=== PATIENT | female | born 1935 ===

== ENCOUNTER 2017-01-09 19:39 | Inpatient (IN) | payer MEDICARE, OTHER ==
[2017-01-09 19:44] VITALS: O2SAT 99; BMI 24.5
--- NOTE | 2017-01-09 19:44 | ED PDOC ---
Psych Transfer Clearance - Clearance Statement Clearance Statement: Reviewed vital signs, lab results and transfer papers. Patient clinically stable for psychiatric admission.
[2017-01-09] MEDS ORDERED: Alum-Mag Hydrox-Simethicone Susp (30 mL) PO PRN (20:32)
[2017-01-09] MEDS ORDERED: Magnesium Hydroxide Susp 30 ml UD PO PRN (20:32)
[2017-01-09] MEDS ORDERED: Bismuth Subsalicylate 262 mg/15 ml Sus (240 ml) PO PRN (20:32)
[2017-01-09] MEDS: Insulin Lispro (humaLOG) 100 Units/ml Inj SC SCH (21:41)
[2017-01-10 06:44] LABS: BLOOD UREA NITROGEN 26 mg/dl (7-17); CALCIUM 9.3 mg/dL (8.4-10.2); GFR AFRICAN-AMERICAN > 60; GFR NON-AFRICAN AMERICAN 53; HDL CHOLESTEROL 33 MG/DL (30-70)
[2017-01-10 06:56] LABS: LDL CHOLESTEROL 157 mg/dL (0-129)
[2017-01-10 07:02] LABS: T4 6.77 ug/dl (5.5-11.0)
[2017-01-10] MEDS: Insulin Lispro (humaLOG) 100 Units/ml Inj SC SCH ×4 (08:35→21:24)
[2017-01-10] MEDS: Divalproex 125 mg Sprinkle Capsule PO SCH ×2 (08:38→17:39)
--- NOTE | 2017-01-10 10:52 | CP.PCM.CON ---
History of Present Illness - History of Present Illness History of Present Illness: Patient is a 81 YO Female with PMH of Dementia, Parkinson's disease, HTN and DM per chart presents to [facility] from transferred from [facility] for behavior changes and worsening dementia. Per chart, patient was found to be nude at home, and smearing feces in her face and body. Medicine was consulted for medical management. Patient is seen and interviewed bedside. She is awake, alert and oriented to name only. 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 Occasionally looks out the window and says "look at the flying car and buses outside the window." When asked about any weakness in her extremities patient states that "I have never walked or breathed in my life." Patient notes that she had oatmeal and juice breakfast this AM. Denies abdominal pain, chest pain, nausea, vomiting, dysuria, fever, chills. Per chart PMH: Bipolar disorder, Parkinson's disease, dementia, DM, HTN FH: No known family history SH: From [place], used to a [employer], lives with her 2 sons, , no drugs/etoh/smoking, + some college education Allergies: NKDA Review of Systems - Review of Systems Systems not reviewed;Unavailable: Dementia Review of Systems: Pleasant, alert, awake and oriented to person only. - EENT Eyes: absent: Pain Nose/Mouth/Throat: absent: Facial Pain, Neck Pain - Cardiovascular Cardiovascular: absent: Chest Pain, Dyspnea - Respiratory Respiratory: absent: Cough - Gastrointestinal Gastrointestinal: absent: Abdominal Pain, Diarrhea, Nausea, Vomiting - Genitourinary Genitourinary: absent: Dysuria, Bladder Distension - Reproductive: Female Reproductive:Female: Post Menopausal - Neurological Neurological: Behavioral Changes - Psychiatric Psychiatric: Behavioral Changes, Visual Hallucinations Past Patient History - Tetanus Immunizations Tetanus Immunization: Unknown - Past Medical History & Family History Past Medical History?: Yes - Past Social History Smoking Status: Never Smoked Alcohol: None Drugs: Denies Home Situation {Lives}: With Family Domestic Violence: Negative - CARDIAC Hx Hypercholesterolemia: Yes Hx Hypertension: Yes - PULMONARY Hx Respiratory Disorders: No - NEUROLOGICAL Hx Neurological Disorder: Yes Hx Dementia: Yes - HEENT Hx HEENT Problems: Yes Hx Glaucoma: Yes - RENAL Hx Chronic Kidney Disease: No Hx Dialysis: No - ENDOCRINE/METABOLIC Hx Diabetes Mellitus Type 2: Yes - HEMATOLOGICAL/ONCOLOGICAL Hx Blood Disorders: No - INTEGUMENTARY Other/Comment: both heals ulcers,excoriated sacrum - MUSCULOSKELETAL/RHEUMATOLOGICAL Hx Falls: Yes (As per patient " I fall 4 times at home") - GASTROINTESTINAL Hx Gastrointestinal Disorders: No - GENITOURINARY/GYNECOLOGICAL Hx Genitourinary Disorders: No - PSYCHIATRIC Hx Substance Use: No - SURGICAL HISTORY Hx Surgeries: No Other/Comment: history of a gastrostomy tube - ANESTHESIA Hx Anesthesia: No Meds Allergies/Adverse Reactions: Allergies Allergy/AdvReac Type Severity Reaction Status Date / Time No Known Allergies Allergy Verified 08/25/16 10:38 - Medications Medications: Current Medications Acetaminophen (Tylenol 325mg Tab) 650 mg PO Q4 PRN PRN Reason: Pain, moderate (4-7) Al Hydrox/Mg Hydrox/Simethicone (Maalox Plus 30 Ml) 30 ml PO Q4 PRN PRN Reason: Dyspepsia Bismuth Subsalicylate (Pepto-Bismol) 524 mg PO Q4 PRN PRN Reason: Diarrhea Diphenhydramine HCl (Benadryl) 50 mg PO HS PRN PRN Reason: Sleep Divalproex Sodium (Depakote Sprinkles) 250 mg PO BID [facility] Last Admin: 01/10/17 08:38 Dose: 250 mg Hydrocortisone (Cortizone 1% Cream) 1 applic TOP BID [facility] Last Admin: 01/10/17 08:40 Dose: 1 % Insulin Human Lispro (Humalog) 0 units SC ACHS [facility] PRN Reason: Protocol Last Admin: 01/10/17 08:35 Dose: 5 u Lisinopril (Zestril) 10 mg PO DAILY [facility] Last Admin: 01/10/17 08:49 Dose: Not Given Lorazepam (Ativan) 0.5 mg PO HS PRN PRN Reason: Insomnia Stop: 01/23/17 20:33 Lorazepam (Ativan) 0.5 mg PO Q6 PRN PRN Reason: Anixety/Agitation Stop: 01/23/17 20:33 Magnesium Hydroxide (Milk Of Magnesia) 30 ml PO HS PRN PRN Reason: Constipation Metformin HCl (Glucophage) 500 mg PO BID [facility] Last Admin: 01/10/17 08:47 Dose: Not Given Nystatin (Nystop Topical Powder) 1 applic TOP TID [facility] Last Admin: 01/10/17 08:39 Dose: 1 u Quetiapine Fumarate (Seroquel) 50 mg PO BID [facility] Last Admin: 01/10/17 08:49 Dose: Not Given Quetiapine Fumarate (Seroquel) 100 mg PO BID [facility] Last Admin: 01/10/17 08:49 Dose: Not Given Physical Exam - Constitutional Appears: Well, No Acute Distress - Head Exam Head Exam: ATRAUMATIC, NORMAL INSPECTION, NORMOCEPHALIC - ENT Exam ENT Exam: Mucous Membranes Moist, Normal Exam - Neck Exam Neck exam: Positive for: Full Rom - Respiratory Exam Respiratory Exam: Clear to Auscultation Bilateral, NORMAL BREATHING PATTERN - Cardiovascular Exam Cardiovascular Exam: REGULAR RHYTHM, +S1, +S2. absent: Gallop, Rubs - GI/Abdominal Exam GI & Abdominal Exam: Normal Bowel Sounds, Soft. absent: Distended, Guarding - Extremities Exam Extremities exam: Positive for: normal inspection, pedal pulses present. Negative for: pedal edema, tenderness - Neurological Exam Neurological exam: Alert Additional comments: Oriented to person only. - Psychiatric Exam Psychiatric exam: Normal Mood - Skin Skin Exam: Dry, Intact, Normal Color, Warm Results - Vital Signs Recent Vital Signs: Last Vital Signs Temp 97.2 F L 01/10/17 05:47 Pulse 100 H 01/10/17 08:49 Resp 18 01/10/17 05:47 BP 116/68 01/10/17 08:49 Pulse Ox 99 01/10/17 05:47 - Labs Result Diagrams: 01/10/17 06:00 Labs: Laboratory Results - last 24 hr 01/09/17 01/10/17 01/10/17 20:23 05:53 06:00 Sodium 139 Potassium 4.9 Chloride 104 Carbon Dioxide 29 Anion Gap 10 BUN 26 H Creatinine 1.0 Est GFR ( Amer) > 60 Est GFR (Non-Af Amer) 53 POC Glucose (mg/dL) 285 H 356 H Random Glucose 272 H Calcium 9.3 Triglycerides 306 H D Cholesterol 246 H LDL Cholesterol Direct 157 H HDL Cholesterol 33 Thyroxine (T4) 6.77 TSH 3rd Generation 1.83 Assessment & Plan - Assessment and Plan (Free Text) Assessment: Patient is a 81 YO Female with PMH of bipolar, dementia, Parkinson's disease, HTN and DM presented for change in behavior and worsening dementia. Medicine was consulted for medical management. UA in [place]'s negative, afebrile and vs stable. 1. Worsening dementia with behavior changes, bipolar disorder -management per psych 2. DM type II - accu-checks -continue PO metformin 500mg BID -Insulin Lispro SubQ ACHS as per protocol 3. HTN, stable - continue PO lisinopril 10mg daily
--- NOTE | 2017-01-10 17:43 | PCM.PSYCH ---
Initial Psychiatric Evaluation - Initial Psychiatric Evaluation Chief Complaint (in patient's own words): i was feeling down I dont know Patient's Reaction to Hospitalization: 81 YO Female with PMH of Dementia, Parkinson's disease, HTN and DM per chart presents to [facility] from transferred from [facility] for behavior changes and worsening dementia. Per chart, patient was found to be nude at home , and smearing feces in her face and body. Medicine was consulted for medical management. 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 Occasionally looks out the window and says "look at the flying car and buses outside the window." When asked about any weakness in her extremities patient states that "I have never walked or breathed in my life." History of Present Illness and Precipitating Events: Patient is a 81 YO Female with PMH of Dementia, Parkinson's disease, HTN and DM per chart presents to [facility] from transferred from [facility] for behavior changes and worsening dementia. Per chart, patient was found to be nude at home, and smearing feces in her face and body. Occasionally looks out the window and says "look at the flying car and buses outside the window." Current Medications: Active Medications Generic Name Dose Route Start Last Admin Trade Name Freq PRN Reason Stop Dose Admin Acetaminophen 650 mg 01/09/17 20:32 Tylenol 325mg Tab PO Q4 PRN Pain, moderate (4-7) Al Hydrox/Mg Hydrox/Simethicone 30 ml 01/09/17 20:32 Maalox Plus 30 Ml PO Q4 PRN Dyspepsia Bismuth Subsalicylate 524 mg 01/09/17 20:32 Pepto-Bismol PO Q4 PRN Diarrhea Diphenhydramine HCl 50 mg 01/09/17 21:01 Benadryl PO HS PRN Sleep Divalproex Sodium 250 mg 01/10/17 09:00 01/10/17 17:39 Depakote Sprinkles PO 250 mg BID [place] Administration Hydrocortisone 1 applic 01/09/17 23:00 01/10/17 17:38 Cortizone 1% Cream TOP 1 % BID [place] Administration Insulin Human Lispro 0 units 01/09/17 22:00 01/10/17 13:01 Humalog SC 1 u ACHS [place] Administration Protocol Lisinopril 10 mg 01/10/17 09:00 01/10/17 08:49 Zestril PO Not Given DAILY [place] Lorazepam 0.5 mg 01/09/17 20:32 Ativan PO 01/23/17 20:33 HS PRN Insomnia Lorazepam 0.5 mg 01/09/17 20:32 Ativan PO 01/23/17 20:33 Q6 PRN Anixety/Agitation Magnesium Hydroxide 30 ml 01/09/17 20:32 Milk Of Magnesia PO HS PRN Constipation Metformin HCl 500 mg 01/10/17 09:00 01/10/17 08:47 Glucophage PO Not Given BID [place] Nystatin 1 applic 01/10/17 09:00 01/10/17 13:02 Nystop Topical Powder TOP 1 applic TID [place] Administration Quetiapine Fumarate 50 mg 01/10/17 09:00 01/10/17 08:49 Seroquel PO Not Given BID [facility] Quetiapine Fumarate 100 mg 01/10/17 09:00 01/10/17 08:49 Seroquel PO Not Given BID [place] Past Psychiatric History - Past Psychiatric History Prior Professional Help: i dont know I have problems with my memory At what hospital: [facility] Explanation of prior treatment: does not recall History of ETOH/Drug Use: denies History of Family Illness: i dont remember Pertinent Medical Hx (Current Medical&Sleep Prob, Allergies): Allergies Allergy/AdvReac Type Severity Reaction Status Date / Time No Known Allergies Allergy Verified 08/25/16 10:38 Divalproex [Depakote Sprinkles] 250 mg PO BID #120 capsule 09/08/16 Lisinopril [Zestril] 10 mg PO DAILY #30 tablet 09/08/16 QUEtiapine [SEROquel] 50 mg PO BID #30 tab 09/08/16 QUEtiapine [Seroquel] 100 mg PO BID #30 tab 09/08/16 Tobramycin/Dexamethasone [Tobramycin-Dexameth Ophth Susp] 1 drop BOTHEYES DAILY #1 drops.susp 09/08/16 metFORMIN [glucOPHAGE] 500 mg PO BID #60 tab 09/08/16 Review of Systems - Psychiatric Psychiatric: As Per HPI, Abnormal Sleep Pattern, Anhedonia, Auditory Hallucinations, Memory Loss, Visual Hallucinations Mental Status Examination - Personal Presentation Personal Presentation: Looks stated age - Affect Affect: Constricted - Motor Activity Motor Activity: Psychomotor Retardation - Reliability in Providing Information Reliability in Providing Information: Poor, due to alteration in thoughts, Poor , due to cognitve impairment - Speech Speech: Disorganized Additional comments: pt is noted to yell at times when in room denies knowing as to why - Mood Mood: Depressed, Anxious - Formal Thought Process Formal Thought Process: Hallucinations - Hallucinations/Delusions Hallucinations: Visual - Cognitive Functions Orientation: Person Sensorium: Alert Attention/Concentration: Easily distracted Judgement: Imparied, as evidence by: Lack of insight into illness - Risk Risk: Diminished functioning - Strength & Assets Inventory Strength & Assets Inventory: Cooperative (changes in level of function, faily cognitive function, inpaired self care ) DSM 5 DX - DSM 5 DSM 5 Diagnosis: Dementia with Behavioral changes Diabetes Hyperlipidemia hypertryglyceridemia ?abnormal urinalysis - Recommended/Plan of Treatment Treatment Recommendations and Plan of Treatment: admission per attending vital signs and clinical observation per protocol and per clinical status hospitalist consult resume at home meds physical therapy assessment and treatment staff report pt is free of observable skin wounds discharge planning in progress Projected ELOS: 5-7 days Prognosis: guarded Discharge Plan and Discharge Criteria: safety - Smoking Cessation Smoking Cessation Initiated: No Reason for not providing: deferred
[2017-01-11] MEDS: Divalproex 125 mg Sprinkle Capsule PO SCH ×2 (08:39→17:23)
[2017-01-11] MEDS: Insulin Lispro (humaLOG) 100 Units/ml Inj SC SCH ×4 (08:40→21:05)
--- NOTE | 2017-01-11 15:21 | PCM.PYCHPN ---
Psychiatric Progress Note - Psychiatric Progress Note Patient seen today, length of contact: chart reviewed case discussed with team Patient Chief Complaint: i was feeling down I dont know-feeling little better Problems Identified/Issues Discussed: alteration in mood, cognition, self care-lability in mood, yelling out at times , labile at times Medical Problems: does not recall Diagnostic Results: per psychiatry per medicine per nursing ] per socially responsible investment adviser per recreational therapy DSM 5 Symptoms Update: mood changes thought changes behavior changes Medication Change: No Medical Record Reviewed: Yes Mental Status Examination - Cognitive Function Orientation: Person Attention: Poor Concentration: Poor Association: Loose Fund of Knowledge: Poor Decription of patient's judgement and insights: impaired - Mood Mood: Depressed, Anxious - Affect Affect: Constricted - Formal Thought Process Formal Thought Process: Hallucinations - Homicidal Ideation Homicidal Ideation: No Goal/Treatment Plan - Goal/Treatment Plan Progress Toward Problem(s) and Goals/Treatment Plan: int milileu vital signs and clinical observation per protocol and per clinical status pt being followed by hospitalist consult obtain lfts/vpa level [id number] am staff report pt is free of observable skin wounds discharge planning in progress Estimated Date of D/C: 01/18/17 - Smoking Cessation Smoking Cessation Initiated: No Reason for not providing: deferred
[2017-01-12] MEDS: Insulin Lispro (humaLOG) 100 Units/ml Inj SC SCH ×4 (08:57→21:03)
[2017-01-12] MEDS: Divalproex 125 mg Sprinkle Capsule PO SCH ×2 (08:59→16:55)
--- NOTE | 2017-01-12 13:16 | PCM.PYCHPN ---
Psychiatric Progress Note - Psychiatric Progress Note Patient seen today, length of contact: discussed with team Patient Chief Complaint: no c/o Problems Identified/Issues Discussed: no c/o medication side effects. no major behavioral episodes or aggression. Medication Change: No Medical Record Reviewed: Yes Mental Status Examination - Cognitive Function Orientation: Person Memory: Intact Attention: Poor Concentration: Poor Association: Loose Fund of Knowledge: Poor Decription of patient's judgement and insights: poor - Mood Mood: Depressed, Anxious - Affect Affect: Constricted - Formal Thought Process Formal Thought Process: Hallucinations - Suicidal Ideation Suicidal Ideation: No - Homicidal Ideation Homicidal Ideation: No Goal/Treatment Plan - Goal/Treatment Plan Need for Continued Stay: Remain at risks for inpatient hospitalization, Severe functional impairment Progress Toward Problem(s) and Goals/Treatment Plan: dementia with behavioral disturbance continue current treatment check depakoke level this weekend Estimated Date of D/C: 01/18/17 - Smoking Cessation Smoking Cessation Initiated: No
[2017-01-13 08:36] LABS: ALB/GLOB RATIO 1.2 (1.0-2.1); ALBUMIN 3.3 g/dL (3.5-5.0); BILIRUBIN,DIRECT 0.3 mg/ml (0.0-0.4)
[2017-01-13] MEDS: Divalproex 125 mg Sprinkle Capsule PO SCH ×2 (08:59→16:07)
[2017-01-13] MEDS: Insulin Lispro (humaLOG) 100 Units/ml Inj SC SCH ×4 (09:01→21:00)
--- NOTE | 2017-01-13 10:46 | PCM.PYCHPN ---
Psychiatric Progress Note - Psychiatric Progress Note Patient seen today, length of contact: discussed with team Patient Chief Complaint: no c/o Problems Identified/Issues Discussed: no c/o medication side effects. no major behavioral episodes or aggression. Medication Change: No Medical Record Reviewed: Yes Mental Status Examination - Cognitive Function Orientation: Person Memory: Intact Attention: Poor Concentration: Poor Association: Loose Fund of Knowledge: Poor Decription of patient's judgement and insights: poor - Mood Mood: Depressed, Anxious - Affect Affect: Constricted - Formal Thought Process Formal Thought Process: Other (internally preoccupied) - Suicidal Ideation Suicidal Ideation: No - Homicidal Ideation Homicidal Ideation: No Goal/Treatment Plan - Goal/Treatment Plan Need for Continued Stay: Remain at risks for inpatient hospitalization, Severe functional impairment Progress Toward Problem(s) and Goals/Treatment Plan: dementia with behavioral disturbance continue current treatment check depakoke level this Estimated Date of D/C: 01/18/17
[2017-01-14] MEDS: Divalproex 125 mg Sprinkle Capsule PO SCH ×2 (10:36→16:38)
[2017-01-14] MEDS: Insulin Lispro (humaLOG) 100 Units/ml Inj SC SCH ×4 (10:42→21:02)
--- NOTE | 2017-01-14 12:24 | PCM.PYCHPN ---
Psychiatric Progress Note - Psychiatric Progress Note Patient seen today, length of contact: discussed with team Patient Chief Complaint: no c/o Problems Identified/Issues Discussed: no c/o medication side effects. pt calm and in room currently. no major behavioral episodes or aggression over this weekend. Diagnostic Results: valproic acid 61.8 Medication Change: No Medical Record Reviewed: Yes Mental Status Examination - Cognitive Function Orientation: Person Memory: Intact Attention: Poor Concentration: Poor Association: Loose Fund of Knowledge: Poor Decription of patient's judgement and insights: poor - Mood Mood: Depressed, Anxious - Affect Affect: Constricted - Formal Thought Process Formal Thought Process: Other (internally preoccupied) - Suicidal Ideation Suicidal Ideation: No - Homicidal Ideation Homicidal Ideation: No Goal/Treatment Plan - Goal/Treatment Plan Need for Continued Stay: Remain at risks for inpatient hospitalization, Severe functional impairment Progress Toward Problem(s) and Goals/Treatment Plan: dementia with behavioral disturbance continue current treatment depakote level is wnl and will not change dose Estimated Date of D/C: 01/18/17
--- NOTE | 2017-01-15 08:58 | PCM.PYCHPN ---
Psychiatric Progress Note - Psychiatric Progress Note Patient seen today, length of contact: Patient evaluated, case discussed with team, chart reviewed, 35 min Patient Chief Complaint: "I'm okay" Problems Identified/Issues Discussed: Patient continues to be disoriented to place/time. She denies any acute complaints. She denies acute paranoia towards her family. She continues to intermittently disrobe herself for no apparent reason, but is otherwise redirectable. No aggression/agitation. Diagnostic Results: VPA 61.8 Medication Change: No Medical Record Reviewed: Yes Mental Status Examination - Cognitive Function Orientation: Person Memory: Intact Attention: Poor Concentration: Poor Association: Loose Fund of Knowledge: Poor Decription of patient's judgement and insights: Poor I/J - Mood Mood: Anxious - Affect Affect: Constricted - Speech Speech: Soft - Formal Thought Process Formal Thought Process: Loosening of associations Psychotic Thoughts and Behaviors: Denies AH/VH - Suicidal Ideation Suicidal Ideation: No - Homicidal Ideation Homicidal Ideation: No Goal/Treatment Plan - Goal/Treatment Plan Need for Continued Stay: Remain at risks for inpatient hospitalization, Severe functional impairment Progress Toward Problem(s) and Goals/Treatment Plan: Dementia w/ behavioral disturbances -Continue current medications -Individual and group therapy -Disposition planning Estimated Date of D/C: 01/18/17
[2017-01-15] MEDS: Divalproex 125 mg Sprinkle Capsule PO SCH ×2 (09:38→17:46)
[2017-01-15] MEDS: Insulin Lispro (humaLOG) 100 Units/ml Inj SC SCH ×4 (10:22→21:20)
--- NOTE | 2017-01-16 08:42 | PCM.PYCHPN ---
Psychiatric Progress Note - Psychiatric Progress Note Patient seen today, length of contact: Patient evaluated, case discussed with team, chart reviewed, 35 min Patient Chief Complaint: "I'm okay" Problems Identified/Issues Discussed: No significant events overnight. Patient continues to be disoriented to place/ time. She denies any acute complaints. She denies acute paranoia towards her family. She has been eating well. No aggression/agitation. Diagnostic Results: VPA 61.8 Medication Change: No Medical Record Reviewed: Yes Mental Status Examination - Cognitive Function Orientation: Person Memory: Intact Attention: Poor Concentration: Poor Association: Loose Fund of Knowledge: Poor Decription of patient's judgement and insights: Poor I/J - Mood Mood: Neutral - Affect Affect: Constricted - Speech Speech: Soft - Formal Thought Process Formal Thought Process: Loosening of associations Psychotic Thoughts and Behaviors: Denies AH/VH - Suicidal Ideation Suicidal Ideation: No - Homicidal Ideation Homicidal Ideation: No Goal/Treatment Plan - Goal/Treatment Plan Need for Continued Stay: Severe functional impairment Progress Toward Problem(s) and Goals/Treatment Plan: Dementia w/ behavioral disturbances -Continue current medications -Individual and group therapy -Disposition planning- refer for intermediate placement Estimated Date of D/C: 01/19/17
[2017-01-16] MEDS: Insulin Lispro (humaLOG) 100 Units/ml Inj SC SCH ×4 (11:25→21:10)
[2017-01-16] MEDS: Divalproex 125 mg Sprinkle Capsule PO SCH ×2 (11:26→18:23)
--- NOTE | 2017-01-17 08:05 | PCM.PYCHPN ---
Psychiatric Progress Note - Psychiatric Progress Note Patient seen today, length of contact: Patient evaluated, case discussed with team, chart reviewed, 35 min Patient Chief Complaint: "I'm okay" Problems Identified/Issues Discussed: No significant events. Patient refuses medications intermittently, but usually agrees later one when asked again. Patient continues to be disoriented to place/time. She denies any acute complaints. She denies acute paranoia towards her family. She has been eating well. No aggression/agitation. Diagnostic Results: VPA 61.8 Medication Change: No Medical Record Reviewed: Yes Mental Status Examination - Cognitive Function Orientation: Person Memory: Intact Attention: Poor Concentration: Poor Association: Loose Fund of Knowledge: Poor Decription of patient's judgement and insights: Poor I/J - Mood Mood: Neutral - Affect Affect: Constricted - Speech Speech: Soft - Formal Thought Process Formal Thought Process: Loosening of associations Psychotic Thoughts and Behaviors: Denies AH/VH - Suicidal Ideation Suicidal Ideation: No - Homicidal Ideation Homicidal Ideation: No Goal/Treatment Plan - Goal/Treatment Plan Need for Continued Stay: Severe functional impairment Progress Toward Problem(s) and Goals/Treatment Plan: Dementia w/ behavioral disturbances -Continue current medications -Individual and group therapy -Disposition planning- refer for fdc placement Estimated Date of D/C: 01/19/17 - Smoking Cessation Smoking Cessation Initiated: No Reason for not providing: Not indicated
[2017-01-17] MEDS: Divalproex 125 mg Sprinkle Capsule PO SCH ×2 (08:28→16:34)
[2017-01-17] MEDS: Insulin Lispro (humaLOG) 100 Units/ml Inj SC SCH ×4 (08:29→21:11)
--- NOTE | 2017-01-18 08:02 | PCM.PYCHPN ---
Psychiatric Progress Note - Psychiatric Progress Note Patient seen today, length of contact: Patient evaluated, case discussed with team, chart reviewed, 35 min Patient Chief Complaint: "I'm okay" Problems Identified/Issues Discussed: No significant events. Patient continues to be disoriented to place/time. She denies any acute complaints. She denies acute paranoia towards her family. She has been eating well. No aggression/agitation. She sits in the hallway and engages in appropriate conversation with staff and peers. Diagnostic Results: VPA 61.8 Medication Change: No Medical Record Reviewed: Yes Mental Status Examination - Cognitive Function Orientation: Person Memory: Intact Attention: Poor Concentration: Poor Association: Loose Fund of Knowledge: Poor Decription of patient's judgement and insights: Poor I/J - Mood Mood: Neutral - Affect Affect: Constricted - Speech Speech: Soft - Formal Thought Process Formal Thought Process: Loosening of associations Psychotic Thoughts and Behaviors: Denies AH/VH - Suicidal Ideation Suicidal Ideation: No - Homicidal Ideation Homicidal Ideation: No Goal/Treatment Plan - Goal/Treatment Plan Need for Continued Stay: Severe functional impairment Progress Toward Problem(s) and Goals/Treatment Plan: Dementia w/ behavioral disturbances; Patient is improving clinically, 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 -Continue current medications -Individual and group therapy -Disposition planning- refer for prison placement Estimated Date of D/C: 01/19/17
[2017-01-18] MEDS: Divalproex 125 mg Sprinkle Capsule PO SCH ×2 (09:22→16:33)
[2017-01-18] MEDS: Insulin Lispro (humaLOG) 100 Units/ml Inj SC SCH ×4 (09:23→21:11)
--- NOTE | 2017-01-19 08:22 | PCM.PYCHPN ---
Psychiatric Progress Note - Psychiatric Progress Note Patient seen today, length of contact: Patient evaluated, case discussed with team, chart reviewed, 35 min Patient Chief Complaint: "I'm okay" Problems Identified/Issues Discussed: No significant events overnight. Patient continues to be disoriented to place/ time. She denies any acute complaints. She denies acute paranoia or hallucinations. She has been eating well. No aggression/agitation. She sits in the hallway and engages in appropriate conversation with staff and peers. Diagnostic Results: VPA 61.8 Medication Change: No Medical Record Reviewed: Yes Mental Status Examination - Cognitive Function Orientation: Person Memory: Intact Attention: Poor Concentration: Poor Association: Loose Fund of Knowledge: Poor Decription of patient's judgement and insights: Poor I/J - Mood Mood: Neutral - Affect Affect: Constricted - Speech Speech: Soft - Formal Thought Process Formal Thought Process: Loosening of associations Psychotic Thoughts and Behaviors: Denies AH/VH - Suicidal Ideation Suicidal Ideation: No - Homicidal Ideation Homicidal Ideation: No Goal/Treatment Plan - Goal/Treatment Plan Need for Continued Stay: Severe functional impairment Progress Toward Problem(s) and Goals/Treatment Plan: Dementia w/ behavioral disturbances; currently being referred for intermediate placement. -Continue current medications -Individual and group therapy -Disposition planning- refer for [facility] placement Estimated Date of D/C: 01/22/17
[2017-01-19] MEDS: Divalproex 125 mg Sprinkle Capsule PO SCH ×2 (09:03→16:42)
[2017-01-19] MEDS: Insulin Lispro (humaLOG) 100 Units/ml Inj SC SCH ×4 (09:04→21:04)
--- NOTE | 2017-01-20 08:24 | PCM.PYCHPN ---
Psychiatric Progress Note - Psychiatric Progress Note Patient seen today, length of contact: Patient evaluated, case discussed with team, chart reviewed, 35 min Patient Chief Complaint: "I'm okay" Problems Identified/Issues Discussed: No significant events. Patient continues to be disoriented to place/time. She denies any acute complaints. She denies acute paranoia or hallucinations. She has been eating well. No aggression/agitation. Diagnostic Results: VPA 61.8 Medication Change: No Medical Record Reviewed: Yes Mental Status Examination - Cognitive Function Orientation: Person Memory: Intact Attention: Poor Concentration: Poor Association: Loose Fund of Knowledge: Poor Decription of patient's judgement and insights: Poor I/J - Mood Mood: Neutral - Affect Affect: Constricted - Speech Speech: Soft - Formal Thought Process Formal Thought Process: Loosening of associations Psychotic Thoughts and Behaviors: Denies AH/VH - Suicidal Ideation Suicidal Ideation: No - Homicidal Ideation Homicidal Ideation: No Goal/Treatment Plan - Goal/Treatment Plan Need for Continued Stay: Severe functional impairment Progress Toward Problem(s) and Goals/Treatment Plan: Dementia w/ behavioral disturbances; 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 -Continue current medications -Individual and group therapy -Disposition planning- refer for custodial placement Estimated Date of D/C: 01/22/17
[2017-01-20] MEDS: Divalproex 125 mg Sprinkle Capsule PO SCH ×2 (09:22→16:50)
[2017-01-20] MEDS: Insulin Lispro (humaLOG) 100 Units/ml Inj SC SCH ×4 (09:23→16:50)
--- NOTE | 2017-01-21 08:51 | PCM.PYCHPN ---
Psychiatric Progress Note - Psychiatric Progress Note Patient seen today, length of contact: Patient evaluated, case discussed with team, chart reviewed, 35 min Patient Chief Complaint: "I'm okay" Problems Identified/Issues Discussed: No significant events overnight. Patient continues to be disoriented to place/ time. She denies any acute complaints. She denies acute paranoia or hallucinations. She has been eating well. No aggression/agitation. Diagnostic Results: VPA 61.8 Medication Change: No Medical Record Reviewed: Yes Mental Status Examination - Cognitive Function Orientation: Person Memory: Intact Attention: Poor Concentration: Poor Association: Loose Fund of Knowledge: Poor Decription of patient's judgement and insights: Poor I/J - Mood Mood: Neutral - Affect Affect: Constricted - Speech Speech: Soft - Formal Thought Process Formal Thought Process: Loosening of associations Psychotic Thoughts and Behaviors: Denies AH/VH - Suicidal Ideation Suicidal Ideation: No - Homicidal Ideation Homicidal Ideation: No Goal/Treatment Plan - Goal/Treatment Plan Need for Continued Stay: Severe functional impairment Progress Toward Problem(s) and Goals/Treatment Plan: Dementia w/ behavioral disturbances; currently being referred for sn[facility] placement. -Continue current medications -Individual and group therapy -Disposition planning- refer for custodial placement Estimated Date of D/C: 01/22/17
[2017-01-21] MEDS: Divalproex 125 mg Sprinkle Capsule PO SCH (14:18)
[2017-01-21] MEDS: Insulin Lispro (humaLOG) 100 Units/ml Inj SC SCH ×4 (14:19→21:16)
[2017-01-22] MEDS: Divalproex 125 mg Sprinkle Capsule PO SCH ×3 (08:32→16:46)
[2017-01-22] MEDS: Insulin Lispro (humaLOG) 100 Units/ml Inj SC SCH ×4 (08:34→21:10)
--- NOTE | 2017-01-22 09:40 | PCM.PYCHPN ---
Psychiatric Progress Note - Psychiatric Progress Note Patient seen today, length of contact: Patient evaluated, case discussed with team, chart reviewed, 35 min Patient Chief Complaint: "I'm okay" Problems Identified/Issues Discussed: Patient sometimes refuses medications intermittently, but will often agree when asked at a later time. Patient continues to be disoriented to place/time. She denies any acute complaints. She denies acute paranoia or hallucinations. She has been eating well. No aggression/agitation. Diagnostic Results: VPA 61.8 Medication Change: No Medical Record Reviewed: Yes Mental Status Examination - Cognitive Function Orientation: Person Memory: Intact Attention: Poor Concentration: Poor Association: Loose Fund of Knowledge: Poor Decription of patient's judgement and insights: Poor I/J - Mood Mood: Neutral - Affect Affect: Constricted - Speech Speech: Soft - Formal Thought Process Formal Thought Process: Loosening of associations Psychotic Thoughts and Behaviors: Denies AH/VH - Suicidal Ideation Suicidal Ideation: No - Homicidal Ideation Homicidal Ideation: No Goal/Treatment Plan - Goal/Treatment Plan Need for Continued Stay: Severe functional impairment Progress Toward Problem(s) and Goals/Treatment Plan: Dementia w/ behavioral disturbances; currently being referred for residential placement. -Continue current medications -Individual and group therapy -Disposition planning- refer for care home placement Estimated Date of D/C: 01/22/17
--- NOTE | 2017-01-23 08:30 | PCM.PYCHPN ---
Psychiatric Progress Note - Psychiatric Progress Note Patient seen today, length of contact: Patient evaluated, case discussed with team, chart reviewed, 35 min Patient Chief Complaint: "I'm good" Problems Identified/Issues Discussed: No significant events overnight. No agitation/aggression. Patient continues to be disoriented to place/time as per her baseline dementia. She denies any acute complaints. She denies acute paranoia or hallucinations. She has been eating well. She is calm, pleasant and in good behavioral control Diagnostic Results: VPA 61.8 Medication Change: No Medical Record Reviewed: Yes Mental Status Examination - Cognitive Function Orientation: Person Memory: Intact Attention: Poor Concentration: Poor Association: Loose Fund of Knowledge: Poor Decription of patient's judgement and insights: Poor I/J - Mood Mood: Neutral - Affect Affect: Constricted - Speech Speech: Soft - Formal Thought Process Formal Thought Process: Loosening of associations Psychotic Thoughts and Behaviors: Denies AH/VH - Suicidal Ideation Suicidal Ideation: No - Homicidal Ideation Homicidal Ideation: No Goal/Treatment Plan - Goal/Treatment Plan Need for Continued Stay: Severe functional impairment Progress Toward Problem(s) and Goals/Treatment Plan: Dementia w/ behavioral disturbances; patient is psychiatrically stable for referral to intermediate. -Continue current medications -Individual and group therapy -Disposition planning- refer for intermediate placement Estimated Date of D/C: 01/25/17
[2017-01-23] MEDS: Divalproex 125 mg Sprinkle Capsule PO SCH ×2 (08:52→16:55)
[2017-01-23] MEDS: Insulin Lispro (humaLOG) 100 Units/ml Inj SC SCH ×4 (08:54→21:36)
[2017-01-24] MEDS: Insulin Lispro (humaLOG) 100 Units/ml Inj SC SCH ×4 (08:39→21:07)
[2017-01-24] MEDS: Divalproex 125 mg Sprinkle Capsule PO SCH ×3 (08:39→17:32)
--- NOTE | 2017-01-24 09:49 | PCM.PYCHPN ---
Psychiatric Progress Note - Psychiatric Progress Note Patient seen today, length of contact: Patient evaluated, case discussed with team, chart reviewed, 35 min Patient Chief Complaint: "I'm good" Problems Identified/Issues Discussed: No significant events. No agitation/aggression. Patient continues to be disoriented to place/time as per her baseline dementia. She denies any acute complaints. She denies acute paranoia or hallucinations. She has been eating well. She is calm, pleasant and in good behavioral control Diagnostic Results: VPA 61.8 Medication Change: No Medical Record Reviewed: Yes Mental Status Examination - Cognitive Function Orientation: Person Memory: Intact Attention: Poor Concentration: Poor Association: Loose Fund of Knowledge: Poor Decription of patient's judgement and insights: Poor I/J - Mood Mood: Neutral - Affect Affect: Broad - Speech Speech: Soft - Formal Thought Process Formal Thought Process: Loosening of associations Psychotic Thoughts and Behaviors: Denies AH/VH - Suicidal Ideation Suicidal Ideation: No - Homicidal Ideation Homicidal Ideation: No Goal/Treatment Plan - Goal/Treatment Plan Need for Continued Stay: Severe functional impairment Progress Toward Problem(s) and Goals/Treatment Plan: Dementia w/ behavioral disturbances; patient is psychiatrically stable for referral to fdc. -Continue current medications -Individual and group therapy -Disposition planning- refer for [facility] placement Estimated Date of D/C: 01/26/17
[2017-01-25] MEDS: Insulin Lispro (humaLOG) 100 Units/ml Inj SC SCH ×4 (09:50→21:06)
--- NOTE | 2017-01-25 10:06 | PCM.PYCHPN ---
Psychiatric Progress Note - Psychiatric Progress Note Patient seen today, length of contact: Patient evaluated, case discussed with team, chart reviewed Patient Chief Complaint: "I'm good" Problems Identified/Issues Discussed: No significant events overnight. No agitation/aggression. Patient continues to be disoriented to place/time as per her baseline dementia. She denies any acute complaints. She denies acute paranoia or hallucinations. She has been eating well. She is calm, pleasant and in good behavioral control Diagnostic Results: VPA 61.8 Medication Change: No Medical Record Reviewed: Yes Mental Status Examination - Cognitive Function Orientation: Person Memory: Intact Attention: Poor Concentration: Poor Association: Loose Fund of Knowledge: Poor Decription of patient's judgement and insights: Poor I/J - Mood Mood: Neutral - Affect Affect: Broad - Speech Speech: Soft - Formal Thought Process Formal Thought Process: Loosening of associations Psychotic Thoughts and Behaviors: Denies AH/VH - Suicidal Ideation Suicidal Ideation: No - Homicidal Ideation Homicidal Ideation: No Goal/Treatment Plan - Goal/Treatment Plan Need for Continued Stay: Severe functional impairment Progress Toward Problem(s) and Goals/Treatment Plan: Dementia w/ behavioral disturbances; patient is psychiatrically stable for referral to group home. -Continue current medications -Individual and group therapy -Disposition planning- refer for group home placement Estimated Date of D/C: 01/26/17
[2017-01-25] MEDS: Divalproex 125 mg Sprinkle Capsule PO SCH ×2 (10:26→17:05)
[2017-01-26] MEDS: Divalproex 125 mg Sprinkle Capsule PO SCH ×3 (08:54→17:41)
[2017-01-26] MEDS: Insulin Lispro (humaLOG) 100 Units/ml Inj SC SCH ×4 (08:58→21:11)
--- NOTE | 2017-01-26 10:33 | PCM.PYCHPN ---
Psychiatric Progress Note - Psychiatric Progress Note Patient seen today, length of contact: Patient evaluated, case discussed with team, chart reviewed Patient Chief Complaint: "I'm good" Problems Identified/Issues Discussed: No significant events. No agitation/aggression. Patient continues to be disoriented to place/time as per her baseline dementia. She denies any acute complaints. She denies acute paranoia or hallucinations. She has been eating well. She is calm, pleasant and in good behavioral control Diagnostic Results: VPA 61.8 Medication Change: No Medical Record Reviewed: Yes Mental Status Examination - Cognitive Function Orientation: Person Memory: Intact Attention: Poor Concentration: Poor Association: Loose Fund of Knowledge: Poor Decription of patient's judgement and insights: Poor I/J - Mood Mood: Neutral - Affect Affect: Broad - Speech Speech: Soft - Formal Thought Process Formal Thought Process: Loosening of associations Psychotic Thoughts and Behaviors: Denies AH/VH - Suicidal Ideation Suicidal Ideation: No - Homicidal Ideation Homicidal Ideation: No Goal/Treatment Plan - Goal/Treatment Plan Need for Continued Stay: Severe functional impairment Progress Toward Problem(s) and Goals/Treatment Plan: Dementia w/ behavioral disturbances; patient is psychiatrically stable for referral [facility]. -Continue current medications -Individual and group therapy -Disposition planning- refer for [place] placement
[2017-01-27] MEDS: Divalproex 125 mg Sprinkle Capsule PO SCH ×2 (08:42→17:00)
[2017-01-27] MEDS: Insulin Lispro (humaLOG) 100 Units/ml Inj SC SCH ×4 (08:43→21:05)
--- NOTE | 2017-01-27 15:38 | PCM.PYCHPN ---
Psychiatric Progress Note - Psychiatric Progress Note Patient seen today, length of contact: Patient evaluated, case discussed with team, chart reviewed Patient Chief Complaint: seen seated in emre chair in milieu by nursing station, appears to be laughing to self, at times yelling out loud, intermittently adherent with medication, requires total care, yesterday at 5pm refused medications. sleeping well per status, eats with set up. Problems Identified/Issues Discussed: alteration in mood, cognition, self care-lability in mood, yelling out at times , labile at times Medical Problems: does not recall Diagnostic Results: per psychiatry per medicine per nursing ] per social media community manager per recreational therapy DSM 5 Symptoms Update: alteration in mood , alteration in thought process, alteration in self care Medication Change: No Medical Record Reviewed: Yes Mental Status Examination - Cognitive Function Orientation: Person Memory: Intact Attention: Poor Concentration: Poor Association: Loose Fund of Knowledge: Poor Decription of patient's judgement and insights: impaired - Mood Mood: Neutral - Affect Affect: Broad - Speech Speech: Soft - Formal Thought Process Formal Thought Process: Loosening of associations Psychotic Thoughts and Behaviors: confused - Suicidal Ideation Suicidal Ideation: No - Homicidal Ideation Homicidal Ideation: No Goal/Treatment Plan - Goal/Treatment Plan Need for Continued Stay: Severe functional impairment Progress Toward Problem(s) and Goals/Treatment Plan: int [facility] vital signs and clinical observation per protocol and per clinical status pt being followed by hospitalist consult staff report pt is free of observable skin wounds-previously wounds healed discharge planning in progress -placement [facility] 01/29/17 per notes Estimated Date of D/C: 01/29/17 - Smoking Cessation Smoking Cessation Initiated: No Reason for not providing: deferred
[2017-01-28] MEDS: Divalproex 125 mg Sprinkle Capsule PO SCH ×2 (08:57→16:18)
[2017-01-28] MEDS: Insulin Lispro (humaLOG) 100 Units/ml Inj SC SCH ×4 (08:58→21:04)
--- NOTE | 2017-01-28 14:19 | PCM.PYCHPN ---
Psychiatric Progress Note - Psychiatric Progress Note Patient seen today, length of contact: Patient evaluated, case discussed with team, chart reviewed Patient Chief Complaint: seen seated in emre chair in milieu by nursing station, appears to be laughing to self, at times yelling out loud, intermittently adherent with medication, requires total care, medications refused on episodic basis refused medications. sleeping well per status, eats with set up. Problems Identified/Issues Discussed: alteration in mood, cognition, self care-lability in mood, yelling out at times , labile at times Medical Problems: does not recall Diagnostic Results: per psychiatry per medicine per nursing ] per director social welfare per recreational therapy Medication Change: No Medical Record Reviewed: Yes Mental Status Examination - Cognitive Function Orientation: Person Memory: Intact Attention: Poor Concentration: Poor Association: Loose Fund of Knowledge: Poor Decription of patient's judgement and insights: impaired - Mood Mood: Neutral - Affect Affect: Broad - Speech Speech: Soft - Formal Thought Process Formal Thought Process: Loosening of associations Psychotic Thoughts and Behaviors: confused - Suicidal Ideation Suicidal Ideation: No - Homicidal Ideation Homicidal Ideation: No Goal/Treatment Plan - Goal/Treatment Plan Need for Continued Stay: Severe functional impairment Progress Toward Problem(s) and Goals/Treatment Plan: int [facility] vital signs and clinical observation per protocol and per clinical status pt being followed by hospitalist consult pt son in to see pt status reviewed available labs reviewed staff report pt is free of observable skin wounds-previously wounds healed discharge planning in progress -placement [facility] 01/29/17 per notes Estimated Date of D/C: 01/29/17 - Smoking Cessation Smoking Cessation Initiated: No Reason for not providing: deferred
[2017-01-29 06:17] VITALS: BP 147/65; PULSE 88; RESP 20; TEMP 97.5
--- NOTE | 2017-01-29 08:55 | PCM.PYCHDC ---
Mental Status Examination - Mental Status Examination Orientation: Person Memory: Impaired Mood: Neutral Affect: Broad Speech: Appropriate Attention: Poor Concentration: Poor Association: Loose Fund of Knowledge: Poor Formal Thought Process: Loosening of associations Description of patient's judgement and insight: Poor I/J Psychotic Thoughts and Behaviors: Denies AH/VH Suicidal Ideation: No Current Homicidal Ideation?: No Discharge Summary - Discharge Note Reason for Hospitalization: Patient is a 81 YO Female with PMH of Dementia, Parkinson's disease, HTN and DM per chart presents to [facility] from transferred from [facility] for behavior changes and worsening dementia. Per chart, patient was found to be nude at home, and smearing feces in her face and body. Medicine was consulted for medical management. Patient is seen and interviewed bedside. She is awake, alert and oriented to name only. 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 Occasionally looks out the window and says "look at the flying car and buses outside the window." When asked about any weakness in her extremities patient states that "I have never walked or breathed in my life." Patient notes that she had oatmeal and juice breakfast this AM. Denies abdominal pain, chest pain, nausea, vomiting, dysuria, fever, chills. Per chart PMH: Bipolar disorder, Parkinson's disease, dementia, DM, HTN FH: No known family history SH: From [place], used to a seamstress, lives with her 2 sons, , no drugs/etoh/smoking, + some college education Allergies: NKDA Laboratory Data: Abnormal Lab Results 01/28/17 01/28/17 01/28/17 10:59 16:03 20:19 POC Glucose (mg/dL) 148 H 124 H 219 H 01/29/17 05:35 POC Glucose (mg/dL) 125 H Consultations:: List each consultation separately and include: 1. Reason for request. 2. Findings. 3. Follow-up Consultations: Medicine consult Summary of Hospital Course include:: 1. Description of specific treatment plan utilized for patients during their course of treatmen. 2. Summarize the time- course for resolution of acute symptoms and/or regressed behaviors. 3. Describe issues identified and worked on during hospitalization. 4. Describe medication utilized. 5. Describe medical problems identified and treated. 6. Reassessment of suicide risk Summary of Hospital Course: Patient admitted to the hospital. She was stabilized on Depakote 250 mg PO BID and Seroquel 150 mg PO BID. Individual and group therapy provided. Patient is now psychiatrically stable for discharge to detention placement. - Final Diagnosis (DSM 5) Condition upon Discharge: STABLE DSM 5: Dementia w/ behavioral disturbances, Mood disorder unspecified Disposition: HOME/ ROUTINE Follow-up Treatment Plan: Dementia w/ behavioral disturbances; patient is psychiatrically stablee. -Continue Depakote 250 mg PO BID, Seroquel 150 mg PO BID -Individual and group therapy -Disposition planning-[facility]charge to [facility] - Smoking Cessation Smoking Cessation Medication prescribed: No Reason for not providing: Not indicated - Antipsychotic Medications Pt discharged on 2 or more routine antipsychotic medications: No
[2017-01-29] MEDS: Divalproex 125 mg Sprinkle Capsule PO SCH (08:58)
[2017-01-29] MEDS: Insulin Lispro (humaLOG) 100 Units/ml Inj SC SCH ×2 (09:02→11:36)
== END 2017-01-29 14:40 | DRG 57 ==
LOC: H.ER 19:39 → H.STEP 19:44
PROVIDERS: ADMIT Psychiatry & Neurology Psychiatry; ATTEND Psychiatry & Neurology Psychiatry
PROC: GZHZZZZ Group Psychotherapy (ICD-10-PCS; principal; 2017-01-09)
DX: G20 Parkinson's disease (principal); F02.81 Dementia in other diseases classified elsewhere, unspecified severity, with behavioral disturbance; E11.9 Type 2 diabetes mellitus without complications; I10 Essential (primary) hypertension; E78.5 Hyperlipidemia, unspecified; E78.1 Pure hyperglyceridemia; F39 Unspecified mood [affective] disorder